=== PATIENT | female | born 1960 | race Caucasian/White ===

== ENCOUNTER 2018-08-18 09:07 | Outpatient (CLI) | payer OTHER ==
--- NOTE | 2018-08-18 10:25 | BD ---
DEXA BONE DENSITY: History: Post-menopausal. Lumbar Spine: BMD (g/cm2) L1 0.774 T-Score: -2.0 L2 0.876 T-Score: -1.4 L3 0.928 T-Score: -1.4 L4 1.136 T-Score: 0.7 L1-L4 0.941 T-Score: -1.0 Femoral Neck: 0.634 T-Score: -1.9 Total Femur: 0.800 T-Score: -1.2 Impression: 1. Normal bone mineral density of the lumbar spine. Osteopenia left femoral neck. 2. [id number] risk osteoporotic fracture is 9.4% and hip fracture 1.1%. These fracture probabil ities are calculated for an untreated patient. POS: JOSE ALBERTO
--- NOTE | 2018-09-15 14:23 | MMO ---
Bilateral MAMMO Bilat Screen DDI+DESTINY. CLINICAL HISTORY: Patient is 58 years old and is seen for screening. The patient has no family history of breast cancer. The patient has no personal history of cancer. VIEWS: The views performed were: bilateral craniocaudal with tomosynthesis and bilateral mediolateral oblique with tomosynthesis. MAMMOGRAM FINDINGS: There are scattered fibroglandular densities. There is a lobular mass measuring 8 millimeters with circumscribed margins seen in the anterior sub-areolar region of the left breast. In the right breast, there are no suspicious masses, calcifications or areas of architectural distortion. IMPRESSION: MASS IN THE LEFT BREAST REQUIRES ADDITIONAL EVALUATION. ADDITIONAL PROJECTIONS (LEFT CRANIOCAUDAL SPOT COMPRESSION; LEFT MEDIOLATERAL OBLIQUE SPOT COMPRESSION; AND LEFT MEDIOLATERAL) ARE RECOMMENDED. AN ULTRASOUND EXAM IS RECOMMENDED. THE RESULTS OF THIS EXAM WERE SENT TO THE PATIENT. ACR BI-RADS Category 0 - Incomplete: Need additional imaging evaluation. [facility] will notify the patient of the need for additional imaging services. MAMMOGRAPHY NOTE: 1. A negative mammogram report should not delay a biopsy if a dominant of clinically suspicious mass is present. 2. Approximately 10% to 15% of breast cancers are not detected by mammography. 3. Adenosis and dense breasts may obscure an underlying neoplasm.
== END 2018-08-18 09:08 | disposition home or self-care (01) ==
LOC: BICMAMMO 09:07
PROVIDERS: ATTEND Family Medicine
DX: Z12.31 Encounter for screening mammogram for malignant neoplasm of breast (principal); Z13.820 Encounter for screening for osteoporosis; N63.20 Unspecified lump in the left breast, unspecified quadrant; M85.852 Other specified disorders of bone density and structure, left thigh
CPT/HCPCS: 77063; 77067; 77080

== ENCOUNTER 2018-09-22 09:48 | Outpatient (CLI) | payer OTHER ==
--- NOTE | 2018-09-22 10:32 | MMO ---
Left Breast MAMMO Unilat Diag DDI LT+DESTINY. CLINICAL HISTORY: Patient is 58 years old and is seen for additional evaluation requested at current screening. The patient has no family history of breast cancer. The patient has no personal history of cancer. VIEWS: The views performed were: left craniocaudal spot compression with tomosynthesis; left mediolateral oblique spot compression with tomosynthesis; and left mediolateral spot compression with tomosynthesis. FILMS COMPARED: The present examination has been compared to prior imaging studies performed at [facility] on 08/18/2018 and 09/22/2018, and at [facility] on 04/24/2010 and 02/24/2013. MAMMOGRAM FINDINGS: There are scattered fibroglandular densities. There is an oval mass measuring 8 millimeters with circumscribed margins seen in the left breast at 12 o'clock. The mass was shown to be a cyst on ultrasound. There are no suspicious masses, suspicious calcifications, or new areas of architectural distortion. IMPRESSION: THERE IS NO MAMMOGRAPHIC EVIDENCE OF MALIGNANCY. A ROUTINE FOLLOW-UP MAMMOGRAM IN 1 YEAR IS RECOMMENDED. THE RESULTS OF THIS EXAM WERE SENT TO THE PATIENT. ACR BI-RADS Category 2 - Benign finding MAMMOGRAPHY NOTE: 1. A negative mammogram report should not delay a biopsy if a dominant of clinically suspicious mass is present. 2. Approximately 10% to 15% of breast cancers are not detected by mammography. 3. Adenosis and dense breasts may obscure an underlying neoplasm.
--- NOTE | 2018-09-22 10:47 | ULT ---
LIMITED LEFT BREAST ULTRASOUND: DATE: 09/22/2018. PROVIDED CLINICAL HISTORY: Abnormal mammogram findings. FINDINGS: Limited sonographic interrogation was performed of the left breast in the region of mammographic conc radha. There is a cluster of simple cysts present at the 12 o'clock position of the left breast measur ing about 8 mm maximally, corresponding to the mammogram finding. No concerning sonographic finding s are evident. IMPRESSION: BIRADS category 2 - benign findings. Return to annual screening mammography recommended. POS: OFF
== END 2018-09-22 09:49 | disposition home or self-care (01) ==
LOC: BICMAMMO 09:48
PROVIDERS: ATTEND Family Medicine
DX: N63.20 Unspecified lump in the left breast, unspecified quadrant (principal)
CPT/HCPCS: G0279